=== PATIENT | female | born 1960 | race Caucasian/White ===

== ENCOUNTER 2017-02-23 18:18 | Emergency (ER) | payer MEDICARE, OTHER ==
[~2017-02-23 18:18] MED LIST: ASPIRIN CHEWABL81 MG PO; COMBIVENT RESPIM4 GM INH; DUONEB 2.5-0.5M1 AMP NEB; KLOR-CON 1010 MEQ PO; LASIX20 MG PO; LEVAQUIN500 MG PO; LIPITOR40 MG PO; MEDROL 4MG DOSEP4 MG PO; MUCINEX 600MG600 MG PO; NEURONTIN600 MG PO; PERCOCET 5-3251 EACH PO; PREDNISONE 20MG20 MG PO; PRINIVIL20 MG PO; PROZAC20 MG PO; SINGULAIR10 MG PO; SPIRIVA 18MCG18 MCG INH; VENTOLIN (2.5 MG/3 M NEB; VIBRAMYCIN100 MG PO; VICODIN 10/3251 EACH PO
[2017-02-23 19:10] LABS: HCT 47.5 % (37.0-47.0); HGB 15.6 g/dl (12.5-16.0); MCH 26.2 pg (25.0-31.0); MCHC 32.8 g/dL (32.0-36.0); MCV 79.8 fL (78.0-100.0); MPV 10.4 fL (6.0-9.5); RBC 5.95 M/uL (4.20-5.40); RDW 14.9 % (11.5-14.0); WBC 9.6 K/uL (4.0-10.5)
[2017-02-23 19:13] LABS: ALBUMIN 4.3 g/dL (3.5-5.0); BILIRUBIN - TOTAL 0.5 mg/dL (0.1-1.0); CREATININE 0.7 mg/dL (0.5-1.0); GLOBULIN (CALCULATION) 2.5 g/dL (2.2-4.2); POTASSIUM 3.7 mmol/L (3.5-5.1); TOTAL PROTEIN 6.8 g/dL (6.4-8.3)
== END 2017-02-23 20:39 | disposition home or self-care (01) ==
LOC: FER 18:18
PROVIDERS: Internal Medicine
DX: J43.9 Emphysema, unspecified (principal); I25.2 Old myocardial infarction; F17.210 Nicotine dependence, cigarettes, uncomplicated; Z88.0 Allergy status to penicillin; Z88.5 Allergy status to narcotic agent; Z88.6 Allergy status to analgesic agent; Z88.8 Allergy status to other drugs, medicaments and biological substances; Z99.81 Dependence on supplemental oxygen; Z79.51 Long term (current) use of inhaled steroids; Z79.899 Other long term (current) drug therapy
CPT/HCPCS: 36415; 71020; 80053; 83880; 85379; 87804; 87899; 93005; 94640; 94664; 94760; J2930